=== PATIENT | female | born 1990 | race Caucasian/White ===

== ENCOUNTER 2022-12-04 05:53 | Emergency (ER) | payer SELFPAY ==
[~2022-12-04] VITALS: Ht 170.2 cm; Wt 75.0 kg
[2022-12-04] MEDS ORDERED: ketorolac tromethamine 15mg/ml inj. ONE (06:24)
[2022-12-04] MEDS ORDERED: ketorolac trometh. 30mg/ml inj. IV ONE (06:25)
[2022-12-04] MEDS ORDERED: normal saline 1000ML IV soln IVB ONE (06:30)
[2022-12-04] MEDS ORDERED: NO HOME MEDS (06:39)
[2022-12-04] MEDS ORDERED: ceFAZolin/D5W- 1GM premix 50 ML IV STA (06:48)
[2022-12-04 06:55] LABS: ALANINE AMINOTRANSFERASE 24 U/L (12-78); ALBUMIN 3.4 G/DL (3.4-5.0); ALBUMIN/GLOBULIN RATIO 0.9 (1.1-1.5); ALKALINE PHOSPHATASE 90 IU/L (46-116); ANION GAP 10 (8-16); ASPARTATE AMINO TRANSFERASE 26 U/L (10-37); BILIRUBIN,TOTAL 0.3 MG/DL (0.1-1.0); BLOOD UREA NITROGEN 21 MG/DL (7-18); BUN/CREATININE RATIO 15.8 (10.0-20.0); CALCIUM 8.8 MG/DL (8.5-10.1); CHLORIDE 104 MMOL/L (99-107); CREATININE 1.33 MG/DL (0.40-0.90); GLUCOSE 85 MG/DL (70-104); LIPASE 116 U/L (73-393); POTASSIUM 3.4 MMOL/L (3.5-5.1); SODIUM 141 MMOL/L (135-145); TOTAL CARBON DIOXIDE 27.1 MMOL/L (24-32); TOTAL PROTEIN 7.2 G/DL (6.4-8.2); eGFR 46 ML/MIN
[2022-12-04 07:04] LABS: BASOPHILS # (AUTO) 0.1 X10'3 (0-0.2); BASOPHILS % (AUTO) 0.8 % (0-1); EOSINOPHILS # (AUTO) 0.1 X10'3 (0-0.9); EOSINOPHILS % (AUTO) 1.6 % (0-6); HEMATOCRIT 36.4 % (35.0-45.0); HEMOGLOBIN 11.5 g/dl (12.0-16.0); LYMPHOCYTES # (AUTO) 2.9 X10'3 (1.1-4.8); MEAN CORPUSCULAR HEMOGLOBIN 25.7 PG (27.0-31.0); MEAN CORPUSCULAR HGB CONC 31.7 g/dL (33.0-36.5); MEAN CORPUSCULAR VOLUME 81.2 FL (78-98); MEAN PLATELET VOLUME 10.1 FL (7.4-10.4); MONOCYTES # (AUTO) 1.1 X10'3 (0-0.9); NEUTROPHILS # (AUTO) 4.8 X10'3 (1.8-7.7); NEUTROPHILS % (AUTO) 53.6 % (42-75); PLATELET COUNT 254 X10'3 (140-440); RED BLOOD COUNT 4.48 X10'6 (4.20-5.60); RED CELL DISTRIBUTION WIDTH 16.1 % (11.5-14.5)
[2022-12-04 07:30] LABS: CLARITY,URINE SLIGHTLY CLOUDY (Clear); COLOR,URINE YELLOW (Yellow); GLUCOSE, URINE NEGATIVE (Neg); KETONES,URINE NEGATIVE (Neg); LEUKOCYTE ESTERASE ,URINE SMALL (Neg); NITRITES, URINE NEGATIVE (Neg); OCCULT BLOOD,URINE TRACE-INTACT (Neg); PROTEIN,URINE NEGATIVE (Neg); UROBILINOGEN,URINE 0.2 E.U/dL (0.2-1.0)
--- NOTE | 2022-12-04 07:31 | NUR ---
PT REFUSES THE BLOOD PRESSURE CUFF
[2022-12-04 07:37] LABS: UA COLLECTION TYPE CLN CATCH MIDSTREAM
[2022-12-04 07:38] LABS: MUCUS STRANDS MANY /LPF (Neg); SQUAMOUS EPITHELIAL CELL,UR MANY /LPF (FEW)
[2022-12-04 07:39] LABS: TRICHOMONAS,URINE MOD /HPF (NEGATIVE)
[2022-12-04 07:41] LABS: BACTERIA,URINE 1+ /HPF (Neg); RBC,URINE 0-2 /HPF (0-2)
[2022-12-04 07:50] VITALS: BP 138/91
[2022-12-04] MEDS ORDERED: acetaminophen 1,000mg/100ml IV 100 ML IV STA (08:06)
[2022-12-04] MEDS ORDERED: CefTRIAXone/D5W-Rocephin 1gm 50 ML IV ONE (08:15)
[2022-12-04] MEDS ORDERED: DOXY100C43 PO (08:53)
[2022-12-04] MEDS ORDERED: METR-159 PO (08:53)
[2022-12-04] MEDS ORDERED: OXYC-138 PO (08:53)
== END 2022-12-04 09:23 | disposition home or self-care (01) ==
LOC: ER 05:53
DX: N20.0 Calculus of kidney (principal); L03.116 Cellulitis of left lower limb; A59.9 Trichomoniasis, unspecified; F15.90 Other stimulant use, unspecified, uncomplicated; F17.210 Nicotine dependence, cigarettes, uncomplicated; Z88.2 Allergy status to sulfonamides; Z88.5 Allergy status to narcotic agent; Z88.1 Allergy status to other antibiotic agents; Z79.899 Other long term (current) drug therapy
CPT/HCPCS: 36415; 74176; 80053; 81001; 83690; 85025; 96365; 96375; 99285; J0131; J0690; J0696; J1885; J7030; 96376